=== PATIENT | female | born 1965 | race Two or more races ===

== ENCOUNTER 2024-02-16 08:56 | Inpatient (IN) | payer BC, OTHER ==
[2024-02-16] VITALS (8 sets, daily range): BP systolic 130–146; BP diastolic 76–84; PULSE 91–107; RESP 18–22; TEMP 98.3; O2SAT 91–99
[~2024-02-16] VITALS: Ht 154.9 cm; Wt 149.5 kg
[2024-02-16 09:29] LABS: Basophils # (auto) 0.1 10 ^3/uL (0-0.2); Basophils % (auto) 1.4 % (0.0-2.0); Eosinophils # (auto) 0.3 10 ^3/uL (0-0.8); Eosinophils % (auto) 3.6 % (0.0-7.0); Hematocrit 50.8 % (36.0-46.0); Hemoglobin 16.8 g/dL (12.2-16.2); Lymphocytes % (auto) 21.6 % (10.0-50.0); Mean Corpuscular Hemoglobin 28.3 pg (28.0-32.0); Mean Corpuscular Hgb Conc. 33.1 g/dL (32.0-36.0); Mean Corpuscular Volume 85.4 fL (80.0-100.0); Monocytes # (auto) 0.5 10 ^3/uL (0-1.3); Monocytes % (auto) 5.4 % (0.0-12.0); Neutrophils # (auto) 6.2 10 ^3/uL (1.6-8.6); Nucleated Red Blood Cells % 0.2 %; Platelet Count (auto) 219 10^3/uL (140-450); Red Blood Cells 5.94 10^6/uL (4.0-5.20); Red Cell Distribution Width 15.2 % (11.8-14.3); White Blood Cell 9.2 10^3/uL (4.4-10.8)
[2024-02-16 09:45] LABS: Alanine Aminotransferase 26 U/L (7-40); Albumin 4.2 g/dL (3.2-4.8); Alkaline Phosphatase 88 U/L (46-116); Anion Gap 5 (5-15); Aspartate Aminotransferase 17 U/L (13-40); BUN/Creatinine Ratio 10.4 (10.0-20.0); Bilirubin, Total 0.8 mg/dL (0.2-1.0); Blood Urea Nitrogen 10 mg/dL (9-23); Calcium 9.4 mg/dL (8.7-10.4); Carbon Dioxide 29 mmol/L (20-30); Chloride 102 mmol/L (98-107); Glucose 243 mg/dL (74-106); Magnesium 1.9 mg/dL (1.6-2.6); Potassium 4.6 mmol/L (3.5-5.1); Sodium 136 mmol/L (136-145); Total Protein 7.1 g/dL (5.7-8.2)
[2024-02-16] MEDS: FUROSEMIDE 40 MG/4 ML VIAL IV ONE (10:15)
[2024-02-16] MEDS: AZITHROMYCIN 500MG/ 250ML 250 ML IV ONE (10:15)
[2024-02-16] MEDS: cefTRIAXone 1GM/50ML D5W 50 ML IV ONE (10:15)
[2024-02-16] MEDS: NITROGLYCERIN 2% OINT 1GM PKG TD ONE (10:30)
[2024-02-16] MEDS: LEVALBUTEROL HCL 1.25 MG/3 ML NEB NEB SCH (11:39)
[2024-02-16] MEDS ORDERED: ACETAMINOPHEN 325 MG TAB PO PRN (19:15)
[2024-02-16 21:55] LABS: COVID19 ANTIGEN SOFIA FIA NEGATIVE (NEGATIVE); Rapid Influenza A Negative (Negative); Rapid Influenza B Negative (Negative)
[2024-02-16] MEDS: methylPREDNISolone SOD SUCC 40 MG/ML VL IV SCH (22:41)
[2024-02-17] VITALS (15 sets, daily range): BP systolic 129–152; BP diastolic 75–90; PULSE 91–110; RESP 17–20; TEMP 98.1–98.6; O2SAT 90–99
[2024-02-17] MEDS: IPRATROPIUM BROM 0.5 MG/2.5ML INH SOL NEB PRN (06:25)
[2024-02-17 07:14] LABS: Chloride 103 mmol/L (98-107); Potassium 5.5 mmol/L (3.5-5.1); Sodium 137 mmol/L (136-145)
[2024-02-17 07:15] LABS: Anion Gap 2 (5-15); Calcium 9.7 mg/dL (8.7-10.4); Carbon Dioxide 32 mmol/L (20-30)
[2024-02-17 07:20] LABS: BUN/Creatinine Ratio 11.8 (10.0-20.0); Blood Urea Nitrogen 13 mg/dL (9-23); Glucose 340 mg/dL (74-106)
[2024-02-17] MEDS: FAMOTIDINE 20 MG TAB PO SCH (12:15)
[2024-02-17] MEDS: ENOXAPARIN SOD 40 MG/0.4 ML SYRINGE SC SCH (12:16)
[2024-02-17] MEDS: levoFLOXacin 500MG 100 ML IV SCH (12:18)
[2024-02-17] MEDS: FUROSEMIDE 40 MG/4 ML VIAL IV SCH (14:17)
[2024-02-17] MEDS: HYDROcodone-ACET 5/325MG TAB PO PRN (18:56)
[2024-02-18] VITALS (15 sets, daily range): BP systolic 126–179; BP diastolic 77–100; PULSE 78–109; RESP 16–21; TEMP 98–98.8; O2SAT 89–99
[2024-02-18 06:08] LABS: Anion Gap 8 (5-15); Basophils # (auto) 0 10 ^3/uL (0-0.2); Carbon Dioxide 32 mmol/L (20-30); Chloride 96 mmol/L (98-107); Eosinophils # (auto) 0 10 ^3/uL (0-0.8); Hemoglobin 17.2 g/dL (12.2-16.2); Lymphocytes # (auto) 0.6 10 ^3/uL (0.4-5.4); Monocytes % (auto) 2.5 % (0.0-12.0); Nucleated Red Blood Cells % 0.1 %; Potassium 4.6 mmol/L (3.5-5.1); Sodium 136 mmol/L (136-145)
[2024-02-18 06:14] LABS: BUN/Creatinine Ratio 13.4 (10.0-20.0); Blood Urea Nitrogen 15 mg/dL (9-23)
[2024-02-18 06:15] LABS: Basophils % (auto) 0.2 % (0.0-2.0); Hematocrit 51.3 % (36.0-46.0); Lymphocytes % (auto) 6.3 % (10.0-50.0); Mean Corpuscular Hemoglobin 29.1 pg (28.0-32.0); Mean Corpuscular Hgb Conc. 33.5 g/dL (32.0-36.0); Monocytes # (auto) 0.2 10 ^3/uL (0-1.3); Neutrophils # (auto) 8.9 10 ^3/uL (1.6-8.6); Platelet Count (auto) 231 10^3/uL (140-450); Red Blood Cells 5.89 10^6/uL (4.0-5.20); Red Cell Distribution Width 15.4 % (11.8-14.3); White Blood Cell 9.8 10^3/uL (4.4-10.8)
[2024-02-18 06:18] LABS: Glucose 439 mg/dL (74-106)
[2024-02-18] MEDS ORDERED: DEXTROSE (50%) 50ML SYRG IV PRN ×2 (06:45→09:30)
[2024-02-18] MEDS: ACCU-CHEK COMFORT CURVE STRIP VI SCH ×2 (07:00→11:30)
[2024-02-18] MEDS: InsuLIN REG 1unit/0.01ml Soln (100units/ml) SC SCH ×3 (07:00→22:29)
[2024-02-18] MEDS: INSULIN LANTUS (GLARGINE) 1 /0.01ml (100units/ml) SC ONE (09:30)
[2024-02-18 21:35] LABS: Base Excess 4.7 mmol/L (-2.0-3.0)
[2024-02-18] MEDS ORDERED: hydrALAZINE HCL 20 MG/ML VL IV PRN (22:15)
[2024-02-18] MEDS: METOPROLOL TARTRATE 25 MG TAB PO SCH (22:25)
[2024-02-19] VITALS (17 sets, daily range): BP systolic 120–148; BP diastolic 54–98; PULSE 56–106; RESP 16–20; TEMP 97.5–98.6; O2SAT 93–99
[2024-02-19 06:33] LABS: Chloride 97 mmol/L (98-107); Potassium 4.2 mmol/L (3.5-5.1); Sodium 138 mmol/L (136-145)
[2024-02-19 06:34] LABS: Anion Gap 6 (5-15); Carbon Dioxide 35 mmol/L (20-30)
[2024-02-19 06:35] LABS: Calcium 9.7 mg/dL (8.7-10.4)
[2024-02-19 06:40] LABS: BUN/Creatinine Ratio 24.4 (10.0-20.0); Blood Urea Nitrogen 21 mg/dL (9-23); Glucose 170 mg/dL (74-106)
[2024-02-19] MEDS: INSULIN LANTUS (GLARGINE) 1 /0.01ml (100units/ml) SC SCH (06:47)
[2024-02-19] MEDS: IOHEXOL 350 MG/ML 100ML IJ ONE (12:01)
[2024-02-19] MEDS ORDERED: HEPARIN SODIUM (PORCINE) 5000 UNITS/ML 1ML VIAL IV ONE (15:00)
[2024-02-19] MEDS: guaiFENesin-DM 100/10mg/5ml SYR PO PRN (16:02)
[2024-02-19 16:09] LABS: INR 1.07 (0.9-1.15); Partial Thromboplastin Time 24.8 SEC (24.5-34.5); Prothrombin Time 11.3 sec (9.3-11.8)
[2024-02-19] MEDS: HEPARIN DRIP/D5W 100UNITS/ML 250 ML IV SCH ×2 (16:22→23:00)
[2024-02-19] MEDS ORDERED: APIXABAN 5 MG TAB PO SCH ×2 (22:00)
[2024-02-19 22:29] LABS: INR 1.03 (0.9-1.15); Partial Thromboplastin Time 30.2 SEC (24.5-34.5); Prothrombin Time 10.9 sec (9.3-11.8)
[2024-02-19] MEDS: HEPARIN SODIUM (PORCINE) 5000 UNITS/ML 1ML VIAL IV ONE (23:51)
[2024-02-20] VITALS (16 sets, daily range): BP systolic 113–136; BP diastolic 70–90; PULSE 62–97; RESP 17–21; TEMP 97.4–98.6; O2SAT 92–98
[2024-02-20 07:44] LABS: Basophils # (auto) 0.1 10 ^3/uL (0-0.2); Basophils % (auto) 0.6 % (0.0-2.0); Eosinophils # (auto) 0.3 10 ^3/uL (0-0.8); Hematocrit 55.2 % (36.0-46.0); Hemoglobin 18.4 g/dL (12.2-16.2); Lymphocytes # (auto) 2.7 10 ^3/uL (0.4-5.4); Lymphocytes % (auto) 29.4 % (10.0-50.0); Mean Corpuscular Hemoglobin 28.4 pg (28.0-32.0); Mean Corpuscular Hgb Conc. 33.3 g/dL (32.0-36.0); Mean Corpuscular Volume 85.2 fL (80.0-100.0); Monocytes # (auto) 0.8 10 ^3/uL (0-1.3); Monocytes % (auto) 8.4 % (0.0-12.0); Neutrophils # (auto) 5.4 10 ^3/uL (1.6-8.6); Neutrophils % (auto) 58.6 % (37.0-80.0); Nucleated Red Blood Cells % 0.3 %; Platelet Count (auto) 215 10^3/uL (140-450); Red Blood Cells 6.48 10^6/uL (4.0-5.20); Red Cell Distribution Width 15.5 % (11.8-14.3); White Blood Cell 9.3 10^3/uL (4.4-10.8)
[2024-02-20 07:47] LABS: Chloride 92 mmol/L (98-107); Potassium 3.8 mmol/L (3.5-5.1); Sodium 136 mmol/L (136-145)
[2024-02-20 07:48] LABS: Anion Gap 6 (5-15); Carbon Dioxide 38 mmol/L (20-30)
[2024-02-20 07:53] LABS: Glucose 135 mg/dL (74-106)
[2024-02-20 07:54] LABS: BUN/Creatinine Ratio 18.8 (10.0-20.0); Blood Urea Nitrogen 18 mg/dL (9-23)
[2024-02-20 09:01] LABS: INR 1.06 (0.9-1.15); Prothrombin Time 11.2 sec (9.3-11.8)
[2024-02-20] MEDS: HEPARIN DRIP/D5W 100UNITS/ML 250 ML IV SCH ×2 (09:13→17:28)
[2024-02-20 16:03] LABS: INR 1.1 (0.9-1.15); Prothrombin Time 11.6 sec (9.3-11.8)
[2024-02-20 16:19] LABS: Partial Thromboplastin Time 96.5 SEC (24.5-34.5)
[2024-02-20] MEDS: MELATONIN 5 MG TAB PO PRN (22:01)
[2024-02-21] VITALS (15 sets, daily range): BP systolic 123–137; BP diastolic 77–86; PULSE 73–101; RESP 16–20; TEMP 97.6–98.4; O2SAT 92–100
[2024-02-21 00:28] LABS: INR 1.12 (0.9-1.15); Prothrombin Time 11.8 sec (9.3-11.8)
[2024-02-21 00:32] LABS: Partial Thromboplastin Time 103.1 SEC (24.5-34.5)
[2024-02-21] MEDS: HEPARIN DRIP/D5W 100UNITS/ML 250 ML IV SCH (01:50)
[2024-02-21 07:35] LABS: Basophils # (auto) 0.1 10 ^3/uL (0-0.2); Basophils % (auto) 1.1 % (0.0-2.0); Eosinophils # (auto) 0.3 10 ^3/uL (0-0.8); Eosinophils % (auto) 3.9 % (0.0-7.0); Hemoglobin 17.6 g/dL (12.2-16.2); Lymphocytes % (auto) 22.9 % (10.0-50.0); Mean Corpuscular Hemoglobin 28.3 pg (28.0-32.0); Mean Corpuscular Hgb Conc. 33.2 g/dL (32.0-36.0); Mean Corpuscular Volume 85.2 fL (80.0-100.0); Monocytes # (auto) 0.7 10 ^3/uL (0-1.3); Monocytes % (auto) 8.2 % (0.0-12.0); Neutrophils # (auto) 5.6 10 ^3/uL (1.6-8.6); Neutrophils % (auto) 63.9 % (37.0-80.0); Nucleated Red Blood Cells % 0.2 %; Platelet Count (auto) 198 10^3/uL (140-450); Red Blood Cells 6.22 10^6/uL (4.0-5.20); Red Cell Distribution Width 15.1 % (11.8-14.3); White Blood Cell 8.7 10^3/uL (4.4-10.8)
[2024-02-21 07:38] LABS: Anion Gap 5 (5-15); Calcium 9.8 mg/dL (8.7-10.4); Carbon Dioxide 36 mmol/L (20-30); Chloride 94 mmol/L (98-107); Potassium 3.9 mmol/L (3.5-5.1); Sodium 135 mmol/L (136-145)
[2024-02-21 07:44] LABS: BUN/Creatinine Ratio 18.8 (10.0-20.0); Blood Urea Nitrogen 15 mg/dL (9-23); Glucose 167 mg/dL (74-106)
[2024-02-21 11:02] LABS: INR 1.08 (0.9-1.15); Prothrombin Time 11.4 sec (9.3-11.8)
[2024-02-21 18:06] LABS: INR 1.18 (0.9-1.15); Partial Thromboplastin Time 54.3 SEC (24.5-34.5); Prothrombin Time 12.4 sec (9.3-11.8)
[2024-02-22] VITALS (16 sets, daily range): BP systolic 106–143; BP diastolic 58–79; PULSE 82–100; RESP 14–20; TEMP 98–98.6; O2SAT 91–100
[2024-02-22 01:04] LABS: INR 1.04 (0.9-1.15)
[2024-02-22 06:12] LABS: Basophils # (auto) 0 10 ^3/uL (0-0.2); Basophils % (auto) 0.5 % (0.0-2.0); Eosinophils # (auto) 0.4 10 ^3/uL (0-0.8); Monocytes # (auto) 0.7 10 ^3/uL (0-1.3); Neutrophils # (auto) 5.8 10 ^3/uL (1.6-8.6); Nucleated Red Blood Cells % 0.1 %; Red Cell Distribution Width 15.3 % (11.8-14.3)
[2024-02-22 06:18] LABS: Eosinophils % (auto) 4.2 % (0.0-7.0); Hematocrit 50.8 % (36.0-46.0); Lymphocytes # (auto) 2.1 10 ^3/uL (0.4-5.4); Lymphocytes % (auto) 23.1 % (10.0-50.0); Mean Corpuscular Hemoglobin 28.5 pg (28.0-32.0); Mean Corpuscular Hgb Conc. 33.5 g/dL (32.0-36.0); Monocytes % (auto) 8.1 % (0.0-12.0); Neutrophils % (auto) 64.1 % (37.0-80.0); Platelet Count (auto) 177 10^3/uL (140-450); Red Blood Cells 5.98 10^6/uL (4.0-5.20); White Blood Cell 9.1 10^3/uL (4.4-10.8)
[2024-02-22 06:29] LABS: Partial Thromboplastin Time 26.1 SEC (24.5-34.5); Prothrombin Time 10.6 sec (9.3-11.8)
[2024-02-22 06:31] LABS: Anion Gap 4 (5-15); Calcium 9.7 mg/dL (8.7-10.4); Carbon Dioxide 38 mmol/L (20-30); Chloride 95 mmol/L (98-107); Potassium 3.6 mmol/L (3.5-5.1); Sodium 137 mmol/L (136-145)
[2024-02-22 06:37] LABS: BUN/Creatinine Ratio 17.3 (10.0-20.0); Blood Urea Nitrogen 14 mg/dL (9-23); Glucose 163 mg/dL (74-106)
[2024-02-22] MEDS: APIXABAN 5 MG TAB PO SCH (10:09)
[2024-02-23] VITALS (16 sets, daily range): BP systolic 115–141; BP diastolic 70–84; PULSE 72–93; RESP 16–20; TEMP 97.7–98.3; O2SAT 91–100
[2024-02-23 06:30] LABS: Basophils # (auto) 0.1 10 ^3/uL (0-0.2); Basophils % (auto) 0.8 % (0.0-2.0); Eosinophils # (auto) 0.3 10 ^3/uL (0-0.8); Eosinophils % (auto) 3.4 % (0.0-7.0); Hemoglobin 17.2 g/dL (12.2-16.2); Lymphocytes # (auto) 2.1 10 ^3/uL (0.4-5.4); Lymphocytes % (auto) 21.4 % (10.0-50.0); Mean Corpuscular Hemoglobin 29.2 pg (28.0-32.0); Mean Corpuscular Hgb Conc. 34.4 g/dL (32.0-36.0); Mean Corpuscular Volume 84.8 fL (80.0-100.0); Monocytes # (auto) 0.8 10 ^3/uL (0-1.3); Monocytes % (auto) 7.8 % (0.0-12.0); Neutrophils # (auto) 6.5 10 ^3/uL (1.6-8.6); Neutrophils % (auto) 66.6 % (37.0-80.0); Nucleated Red Blood Cells % 0.2 %; Platelet Count (auto) 172 10^3/uL (140-450); Red Cell Distribution Width 15.1 % (11.8-14.3); White Blood Cell 9.7 10^3/uL (4.4-10.8)
[2024-02-23 06:53] LABS: Chloride 96 mmol/L (98-107); Potassium 3.8 mmol/L (3.5-5.1); Sodium 136 mmol/L (136-145)
[2024-02-23 06:54] LABS: Anion Gap 4 (5-15); Calcium 9.7 mg/dL (8.7-10.4); Carbon Dioxide 36 mmol/L (20-30)
[2024-02-23 06:59] LABS: BUN/Creatinine Ratio 15.5 (10.0-20.0); Blood Urea Nitrogen 13 mg/dL (9-23); Glucose 175 mg/dL (74-106)
[2024-02-24] VITALS (11 sets, daily range): BP systolic 30–124; BP diastolic 69–85; PULSE 76–93; RESP 18–20; TEMP 97.7–98.2; O2SAT 92–98
[2024-02-24 06:10] LABS: Anion Gap 5 (5-15); Carbon Dioxide 36 mmol/L (20-30); Chloride 97 mmol/L (98-107); Sodium 138 mmol/L (136-145)
[2024-02-24 06:16] LABS: BUN/Creatinine Ratio 19.3 (10.0-20.0); Blood Urea Nitrogen 17 mg/dL (9-23); Glucose 139 mg/dL (74-106)
[2024-02-24 06:17] LABS: Magnesium 2.1 mg/dL (1.6-2.6)
[2024-02-24 06:19] LABS: Basophils # (auto) 0.1 10 ^3/uL (0-0.2); Basophils % (auto) 0.6 % (0.0-2.0); Eosinophils # (auto) 0.3 10 ^3/uL (0-0.8); Eosinophils % (auto) 3.4 % (0.0-7.0); Hematocrit 48.8 % (36.0-46.0); Hemoglobin 16.5 g/dL (12.2-16.2); Lymphocytes # (auto) 2.2 10 ^3/uL (0.4-5.4); Lymphocytes % (auto) 22.5 % (10.0-50.0); Mean Corpuscular Hgb Conc. 33.9 g/dL (32.0-36.0); Mean Corpuscular Volume 85.4 fL (80.0-100.0); Monocytes % (auto) 9.9 % (0.0-12.0); Neutrophils # (auto) 6.2 10 ^3/uL (1.6-8.6); Neutrophils % (auto) 63.6 % (37.0-80.0); Nucleated Red Blood Cells % 0.1 %; Platelet Count (auto) 167 10^3/uL (140-450); Red Blood Cells 5.71 10^6/uL (4.0-5.20); Red Cell Distribution Width 15.1 % (11.8-14.3); White Blood Cell 9.8 10^3/uL (4.4-10.8)
[2024-02-24 06:52] LABS: Calcium 9.7 mg/dL (8.7-10.4)
[2024-02-24] MEDS: IOHEXOL 350 MG/ML 100ML IJ ONE (09:11)
[2024-02-24] MEDS: FLUTICASONE PROP NASAL SPR 0.05 % (50MCG) 16GM EACHNOSTRI SCH (09:57)
[2024-02-25] VITALS (23 sets, daily range): BP systolic 106–131; BP diastolic 62–90; PULSE 72–97; RESP 14–20; TEMP 97.7–98.5; O2SAT 86–98
[2024-02-25] MEDS: fentaNYL CITRATE 100 MCG/2 ML VL ONE (08:28)
[2024-02-25] MEDS: LIDOCAINE 2%HCL (LOCAL ANESTH.) INJ 20ML MDV ONE (08:28)
[2024-02-25] MEDS: MIDAZOLAM HCL 2MG/2ML 2ml VIAL (1mg/ml) ONE (08:28)
[2024-02-25] MEDS: HEPARIN SODIUM (PORCINE) 5000 UNITS/ML 1ML VIAL ONE (08:28)
[2024-02-25] MEDS: HEPARIN IN NS 1000Units/500mL 1,500 ML ONE (08:28)
[2024-02-25] MEDS: IODIXANOL 320MG/ML 100ML BTL IV ONE ×2 (08:34→09:19)
[2024-02-25] MEDS: ANGIOMAX 250 MG VIAL IV ONE (09:01)
[2024-02-26] VITALS (11 sets, daily range): BP systolic 115–148; BP diastolic 71–90; PULSE 61–98; RESP 16–21; TEMP 36.9; O2SAT 91–100
[2024-02-26] MEDS ORDERED: MET25T PO (14:25)
[2024-02-26] MEDS ORDERED: INSLANTI SC (14:25)
[2024-02-26] MEDS ORDERED: METF-370 PO (14:25)
[2024-02-26] MEDS ORDERED: BLOO1KIT60 XX (14:25)
[2024-02-26] MEDS ORDERED: ALBU1NEB5 IN (14:25)
[2024-02-26] MEDS ORDERED: APIX5TAB PO (14:25)
[2024-02-26] MEDS ORDERED: INSU-567 XX (14:25)
== END 2024-02-26 17:28 | disposition home health service (06) | DRG 163 ==
LOC: ER 08:56 → TELE 19:33 → TELE-WESTW 20:50
PROVIDERS: ADMIT Hospitalist; ATTEND Hospitalist
PROC: 02CR3ZZ Extirpation of Matter from Left Pulmonary Artery, Percutaneous Approach (ICD-10-PCS; principal; 2024-02-25)
PROC: 02CQ3ZZ Extirpation of Matter from Right Pulmonary Artery, Percutaneous Approach (ICD-10-PCS; 2024-02-25)
PROC: B31TYZZ Fluoroscopy of Left Pulmonary Artery using Other Contrast (ICD-10-PCS; 2024-02-25)
PROC: B31SYZZ Fluoroscopy of Right Pulmonary Artery using Other Contrast (ICD-10-PCS; 2024-02-25)
PROC: B34TZZZ Ultrasonography of Left Pulmonary Artery (ICD-10-PCS; 2024-02-25)
PROC: B34SZZZ Ultrasonography of Right Pulmonary Artery (ICD-10-PCS; 2024-02-25)
DX: I26.94 Multiple subsegmental thrombotic pulmonary emboli without acute cor pulmonale (principal); I50.33 Acute on chronic diastolic (congestive) heart failure; J96.01 Acute respiratory failure with hypoxia; J18.9 Pneumonia, unspecified organism; J44.0 Chronic obstructive pulmonary disease with (acute) lower respiratory infection; Z68.44 Body mass index [BMI] 60.0-69.9, adult; I11.0 Hypertensive heart disease with heart failure; E66.01 Morbid (severe) obesity due to excess calories; E11.65 Type 2 diabetes mellitus with hyperglycemia; Z20.822 Contact with and (suspected) exposure to COVID-19; R23.0 Cyanosis; E87.5 Hyperkalemia; I27.20 Pulmonary hypertension, unspecified; Z79.01 Long term (current) use of anticoagulants; Z87.891 Personal history of nicotine dependence
CPT/HCPCS: 36415; 36600; 71045; 71275; 80048; 80053; 82805; 82962; 83036; 83735; 83880; 84484; 85025; 85379; 85610; 85730; 87426; 87804; 93005; 93306; 93970; 94640; 97110; 97116; 97163; 97530; 99152; G0378; J1815; J1956; J2250; Q9967